=== PATIENT | male | born 1945 | race Hispanic/Latino ===

== ENCOUNTER 2021-05-10 10:04 | Outpatient (CLI) | payer MEDICARE, MEDICAID | END 2021-05-10 10:05 | disposition home or self-care (01) | LOC: CSHMRI 10:04 | PROVIDERS: ATTEND Urology | DX: N40.1 Benign prostatic hyperplasia with lower urinary tract symptoms (principal) | CPT/HCPCS: 72197; 82565 ==

== ENCOUNTER 2025-01-28 11:25 | Emergency (ER) | payer MEDICARE ==
[2025-01-28] MEDS ORDERED: Ketorolac Tromethamine 30 MG (1 mL) VIAL ONE (13:10)
== END 2025-01-28 13:16 | disposition home or self-care (01) ==
LOC: CSHERS 11:25
DX: M54.31 Sciatica, right side (principal); M25.551 Pain in right hip; I10 Essential (primary) hypertension; M10.9 Gout, unspecified
CPT/HCPCS: 72100; J1885; 96372; 99283